=== PATIENT | female | born 1980 | race Caucasian/White ===

== ENCOUNTER 2018-05-11 18:03 | Emergency (ER) | payer BC ==
[2018-05-11 19:22] VITALS: BP 118/56
--- NOTE | 2018-05-11 19:31 | UC ---
Eye Complaint HPI - HPI Summary HPI Summary: Pt c/o bilateral eye "itchiness", redness and irritation X 2 weeks. - History of Current Complaint Hx Obtained From: Patient Hx Last Menstrual Period: 03/25/18 ?: No Onset/Duration: Sudden Onset, Lasting Weeks, Still Present Timing: Constant Severity Initially: Mild Severity Currently: Mild Pain Intensity: 0 Aggravating Factor(s): Nothing Alleviating Factor(s): Nothing Associated Signs And Symptoms: Positive: Drainage (Clear) - Risk Factors Penetrating Injury Risk Factor: Negative Globe Rupture Risk Factors: Negative Acute Glaucoma Risk Factors: Negative Optic Artery Occlusion Risk Factors: Negative <Kellen White NP - Last Filed: 05/11/18 19:38> <Mario Mart - Last Filed: 05/11/18 21:39> - History of Current Complaint Chief Complaint: UCEye Stated Complaint: POSS PINK EYE Time Seen by Provider: 05/11/18 19:19 - Allergies/Home Medications Allergies/Adverse Reactions: Allergies Allergy/AdvReac Type Severity Reaction Status Date / Time No Known Allergies Allergy Verified 05/11/18 19:22 PMH/Surg Hx/FS Hx/Imm Hx Previously Healthy: Yes - Surgical History Surgical History: Yes Surgery Procedure, Year, and Place: TUBAL LIGATION. APPY - Family History Known Family History: Positive: Cardiac Disease - Social History Occupation: Employed Full-time Lives: With Family Alcohol Use: Occasionally Substance Use Type: None Smoking Status (MU): Never Smoked Tobacco Have You Smoked in the Last Year: No <Kellen White NP - Last Filed: 05/11/18 19:38> Review of Systems Constitutional: Negative Skin: Negative Eyes: Eye Redness ENT: Negative Respiratory: Negative Cardiovascular: Negative Gastrointestinal: Negative Genitourinary: Negative Motor: Negative Neurovascular: Negative Musculoskeletal: Negative Neurological: Negative Psychological: Negative Is Patient Immunocompromised?: No All Other Systems Reviewed And Are Negative: Yes <Kellen White NP - Last Filed: 05/11/18 19:38> Physical Exam Triage Information Reviewed: Yes Appearance: Well-Appearing Vital Signs: Initial Vital Signs Temp 98.2 F 05/11/18 19:16 Pulse 85 05/11/18 19:16 Resp 18 05/11/18 19:16 BP 118/56 05/11/18 19:16 Pulse Ox 100 05/11/18 19:16 Vital Signs Reviewed: Yes Eyes: Positive: Conjunctiva Clear, Other: - scleritis bilateral right worse than left, ENT Exam: Normal Dental Exam: Normal Neck exam: Normal Respiratory: Positive: No respiratory distress Musculoskeletal Exam: Normal Neurological Exam: Normal Psychological Exam: Normal Skin Exam: Normal <Kellen White NP - Last Filed: 05/11/18 19:38> Vital Signs: Initial Vital Signs Temp 98.2 F 05/11/18 19:16 Pulse 85 05/11/18 19:16 Resp 18 05/11/18 19:16 BP 118/56 05/11/18 19:16 Pulse Ox 100 05/11/18 19:16 <Mario Mart - Last Filed: 05/11/18 21:39> Eye Complaint Course/Dx - Differential Dx/Diagnosis Differential Diagnosis/HQI/PQRI: Conjunctivitis Provider Diagnoses: allergic conjunctivitis bilateral <Kellen White NP - Last Filed: 05/11/18 19:38> Discharge - Sign-Out/Discharge Documenting (check all that apply): Discharge/Admit/Transfer - Billing Disposition and Condition Condition: STABLE Disposition: Home <Kellen White NP - Last Filed: 05/11/18 19:38> - Billing Disposition and Condition Condition: STABLE Disposition: Home <Mario Mart - Last Filed: 05/11/18 21:39> - Discharge Plan Condition: Stable Disposition: HOME Patient Education Materials: Conjunctivitis (ED) Referrals: [facility] [place] [Outside] No Primary Care Phys,NOPCP [Primary Care Provider] - Additional Instructions: Allergic conjunctivitis over the counter eye drops: Zatidor please use as directed. Per institutional requirements, I have reviewed the chart, however, I was not consulted specifically or made aware of this patient by the above midlevel provider. I did not personally evaluate, interact with , or disposition this patient.
== END 2018-05-11 19:37 | disposition home or self-care (01) ==
LOC: UCCORT 18:03
DX: H10.13 Acute atopic conjunctivitis, bilateral (principal)
CPT/HCPCS: 99201; G0463